=== PATIENT | male | born 1945 | race Two or more races ===

== ENCOUNTER 2021-01-10 15:30 | Outpatient (CLI) | payer OTHER | END 2021-01-10 15:37 | disposition home or self-care (01) | LOC: RAD 15:30 | DX: M62.830 Muscle spasm of back (principal); M19.90 Unspecified osteoarthritis, unspecified site ==

== ENCOUNTER 2021-04-20 02:09 | Emergency (ER) | payer OTHER ==
[~2021-04-20] VITALS: Ht 177.8 cm; Wt 99.8 kg
[2021-04-20] MEDS ORDERED: SYNTHROID150 MCG (02:21)
[2021-04-20] MEDS ORDERED: KETO10TA2 PO (06:08)
== END 2021-04-20 06:35 | disposition home or self-care (01) ==
LOC: ER 02:09
DX: M25.512 Pain in left shoulder (principal)

== ENCOUNTER 2021-07-22 21:01 | Emergency (ER) | payer OTHER ==
[~2021-07-22] VITALS: Ht 177.8 cm; Wt 96.6 kg
[~2021-07-22 21:01] MED LIST: KETO10TA2 PO; SYNTHROID150 MCG
[2021-07-23] MEDS ORDERED: KETO10TA2 PO (00:38)
[2021-07-23] MEDS ORDERED: VISTARIL50 MG PO (00:38)
[2021-07-23] MEDS ORDERED: NORFLEX100MG PO (00:38)
== END 2021-07-23 00:32 | disposition home or self-care (01) ==
LOC: ER 21:01
DX: R07.89 Other chest pain (principal); F41.8 Other specified anxiety disorders

== ENCOUNTER 2022-06-28 10:40 | Outpatient (CLI) | payer OTHER ==
[~2022-06-28 10:40] MED LIST changes: +GLUMETZA1000 MG; +NORFLEX100MG PO; +VISTARIL50 MG PO
== END 2022-06-28 10:47 | disposition home or self-care (01) ==
LOC: SONOGRAMA 10:40
PROVIDERS: ATTEND Urology
DX: N43.3 Hydrocele, unspecified (principal)

== ENCOUNTER 2022-06-28 12:42 | Outpatient (CLI) | payer OTHER | END 2022-06-28 12:57 | disposition home or self-care (01) | LOC: RAD 12:42 | PROVIDERS: ATTEND Physical Medicine & Rehabilitation | DX: M25.512 Pain in left shoulder (principal); M17.11 Unilateral primary osteoarthritis, right knee ==

== ENCOUNTER 2022-08-15 14:04 | Outpatient (CLI) | payer OTHER | END 2022-08-15 14:23 | disposition home or self-care (01) | LOC: EDBD 14:04 → SONOGRAMA 14:04 | PROVIDERS: ATTEND General Practice | DX: E03.9 Hypothyroidism, unspecified (principal); U09.9 Post COVID-19 condition, unspecified; J44.9 Chronic obstructive pulmonary disease, unspecified ==

== ENCOUNTER 2022-08-25 14:46 | Outpatient (CLI) | payer OTHER | END 2022-08-25 14:58 | disposition home or self-care (01) | LOC: RAD 14:46 | PROVIDERS: ATTEND Chiropractor | DX: M99.01 Segmental and somatic dysfunction of cervical region (principal); M99.02 Segmental and somatic dysfunction of thoracic region; M99.03 Segmental and somatic dysfunction of lumbar region; M99.04 Segmental and somatic dysfunction of sacral region ==

== ENCOUNTER 2023-01-30 13:39 | Outpatient (CLI) | payer OTHER | END 2023-01-30 13:52 | disposition home or self-care (01) | LOC: RAD 13:39 | PROVIDERS: ATTEND Physical Medicine & Rehabilitation | DX: S76.311A Strain of muscle, fascia and tendon of the posterior muscle group at thigh level, right thigh, initial encounter (principal); M25.561 Pain in right knee; M17.11 Unilateral primary osteoarthritis, right knee ==

== ENCOUNTER 2023-04-24 13:42 | Outpatient (CLI) | payer OTHER | END 2023-04-24 13:46 | disposition home or self-care (01) | LOC: RAD 13:42 | DX: I10 Essential (primary) hypertension (principal) ==

== ENCOUNTER 2025-01-16 13:47 | Outpatient (CLI) | payer OTHER | END 2025-01-16 13:48 | disposition home or self-care (01) | LOC: RAD 13:47 | DX: M06.4 Inflammatory polyarthropathy (principal); M54.50 Low back pain, unspecified ==